=== PATIENT | female | born 1995 | race Two or more races ===

== ENCOUNTER 2018-03-26 11:02 | Outpatient (CLI) | END 2018-03-26 15:22 | disposition home or self-care (01) ==

== ENCOUNTER 2018-04-18 10:10 | Outpatient (CLI) | END 2018-04-18 15:58 | disposition home or self-care (01) ==

== ENCOUNTER 2018-05-04 05:57 | Outpatient (CLI) | END 2018-05-04 10:20 | disposition home or self-care (01) ==